=== PATIENT | female | born 1980 | race African-American/Black ===

== ENCOUNTER 2018-05-13 18:57 | Emergency (ER) | payer SELFPAY ==
[2018-05-13 19:17] LABS: Bilirubin Negative (Negative); Blood, Urine Negative (Negative); Clarity CLEAR (Clear); Glucose, Urine (Dipstick) Negative (Negative); Leukocyte Negative (Negative); Nitrite Negative (Negative); Protein, Urine (Dipstick) Negative (Neg-Trace); Specific Gravity, Urine 1.026 (1.002-1.036); pH, Urine 6.5 (5.0-9.0)
[2018-05-13 19:30] LABS: #Lymphocytes 1.1 thou/uL (1.20-3.40); #Monocytes 0.7 thou/uL (0.11-0.59); #Neutrophils 4.7 thou/uL (1.40-6.50); %Basophils 0.1 % (0.0-1.0); %Eosinophils 0.7 % (0.0-10.0); %Lymphocytes 16.7 % (21.0-51.0); %Neutrophils 72.5 % (42.0-75.0); Hemoglobin 10.1 g/dL (12.0-16.0); Mean Corpuscular HGB CONC 32.7 g/dL (32.0-36.0); Mean Corpuscular Hemoglobin 22.8 pg (27.0-31.0); Mean Corpuscular Volume 69.7 fL (78.0-98.0); Mean Platelet Volume 9.5 fL (7.4-10.4); Platelet Count 278 thou/uL (130-400); RBC Distribution Width 17.6 % (11.5-14.5); Red Blood Cell (RBC) Count 4.43 mill/uL (4.20-5.40); White Blood Cell (WBC) Count 6.5 thou/uL (4.8-10.8)
[2018-05-13 19:47] LABS: ALT (SGPT) Less than 7 U/L (8-55); AST (SGOT) 10 U/L (5-34); Albumin 4.2 g/dL (3.5-5.0); Alkaline Phosphatase 75 U/L (40-150); Anion Gap 13 mmol/L (10-20); BUN (Urea Nitrogen) 11 mg/dL (7.0-18.7); Bilirubin, Total 0.3 mg/dL (0.2-1.2); Calc. Creatinine Clearance 0 mL/min (70-130); Calcium 9.7 mg/dL (7.8-10.44); Carbon Dioxide 20 mmol/L (22-29); Chloride 104 mmol/L (98-107); Estimated GFR-MDRD 88; Globulin 3.6 g/dL (2.4-3.5); Glucose 85 mg/dL (70-105); Potassium 3.6 mmol/L (3.5-5.1); Protein, Total 7.8 g/dL (6.0-8.3); Sodium 133 mmol/L (136-145)
[2018-05-13 20:00] LABS: Anisocytosis SLIGHT = 6-15 cells (100X) (0-5/hpf); Hypochromia SLIGHT = 6-15 cells (100X) (0-5/hpf); Large Platelets SLIGHT; MDiff Complete? YES; Microcytosis SLIGHT = 6-15 cells (100X) (0-5/hpf); Ovalocytes SLIGHT = 2-5 cells (100X) (0-1/hpf); PLT Morphology Comment Appears Adequate; Polychromasia SLIGHT = 2-3 cells (100X) (0-2/hpf)
--- NOTE | 2018-05-13 20:41 | ULT ---
OB ULTRASOUND: HISTORY: Pelvic pain. TECHNIQUE: Multiple longitudinal and transverse images of the pelvis are obtained using a Multi-Hertz curvilinea r transabdominal transducer. Real-time, color-flow, and spectral wave-form Doppler analysis is used to evaluate the pelvis. FINDINGS: Images demonstrate the uterus to measure 11.9 x 6.8 x 7.5 cm. There is a 5.7 x 4.2 x 4.4 cm soft tis bautista mass along the anterior aspect of the uterus, compatible with a large uterine fibroid. There is also an area of heterogeneous echogenicity along the more posterior upper aspect of the uter ine canal, measuring 2.7 x 1.5 cm. This may represent a small area of subchorionic hemorrhage. There is a gestational sac and a pole also seen. [place]-rump length measurement is 2 cm, giving a gestational age of 8 weeks 4 days. Cardiac activity is confirmed, measuring 175 beats per minute. Both ovaries are visualized with good blood flow. The right ovary measures 3.1 x 1.8 x 3.6 cm, while the left ovary measures 2.3 x 1.8 x 1.4 cm. IMPRESSION: 1. Viable intrauterine . Estimated gestational age is 8 weeks 3 days with an estimated khanh e of delivery of 12/20/2018. 2. Moderate sized uterine fibroid. 3. Area of heterogeneous density in the uterine cavity, concerning for an area of subchorionic hemor rhage. POS: [facility]
[2018-05-14 22:42] LABS: Chlamydia by PCR Not Detected (NotDetected); GC by PCR Not Detected (NotDetected)
== END 2018-05-13 21:58 | disposition home or self-care (01) ==
LOC: ERS 18:57
DX: O99.89 Other specified diseases and conditions complicating pregnancy, childbirth and the puerperium (principal); R10.30 Lower abdominal pain, unspecified; Z3A.08 8 weeks gestation of pregnancy
CPT/HCPCS: 36415; 76856; 80053; 81003; 84702; 85025; 86900; 86901; 87480; 87491; 87510; 87591; 87660; 93976

== ENCOUNTER 2018-06-10 02:06 | Emergency (ER) | payer MEDICAID ==
--- NOTE | 2018-06-10 15:34 | ULT ---
PRELIMINARY REPORT/[facility]/EMERGENTY AFTER-HOURS PROCEDURE US First Trimester, Transabdominal CLINICAL HISTORY: 37 years old, female; Signs and symptoms; Lmp or gestational age (in weeks): 13wks; Other: Vag spotti ng; TECHNIQUE: Real-time transabdominal obstetrical ultrasound of the maternal pelvis and a first trimester pregnanc y with image documentation. COMPARISON: No relevant prior studies available. FINDINGS: Gestation: Single, living intrauterine gestation. heart rate 155 beats per minute. CRL 6.87 cm, 13w1d. Subchorionic hemorrhage measuring up to 2.4 cm. Placenta/amniotic fluid: Cannot be adequately evaluated due to the early gestational age. Uterus/cervix: See above. No myometrial mass. Ovaries: Unremarkable. No mass. Free fluid: No significant free fluid. IMPRESSION: Single viable intrauterine . Subchorionic hemorrhage. Thank you for allowing us to participate in the care of your patient. Dictated and Authenticated by: Michele Benton MD 06/10/2018 5:11 AM Central Time ([place] & [place]) FINAL REPORT PELVIC ULTRASOUND: Single viable intrauterine . Gestational age by ultrasound is 13 weeks 4 days. heart rate is 155 b.p.m. There are hyperechoic areas seen in the subchorionic region consistent with areas of subchorionic hem orrhage. These findings were described on the preliminary report. I am in agreement with the preliminary report. POS: [facility]
== END 2018-06-10 06:05 | disposition home or self-care (01) ==
LOC: ERS 02:06
DX: O20.8 Other hemorrhage in early pregnancy (principal); Z3A.12 12 weeks gestation of pregnancy
CPT/HCPCS: 76856; 93976

== ENCOUNTER 2023-06-27 01:20 | Inpatient (IN) | payer OTHER ==
[2023-06-27] MEDS ORDERED: Acetaminophen 500 MG TAB ONE (02:02)
[2023-06-27] MEDS ORDERED: diphenhydrAMINE 50 MG/ML VIAL ONE (02:02)
[2023-06-27] MEDS ORDERED: Prochlorperazine 10 MG/2 ML VIAL ONE (02:02)
[2023-06-27] MEDS ORDERED: hydrALAZINE 20 MG/ML VIAL SLOW IVP PRN (03:06)
[2023-06-27] MEDS ORDERED: HYDROcodone/Acetaminophen 5/325 mg Tablet PO PRN (03:06)
[2023-06-27] MEDS ORDERED: Morphine 2 MG/ML VIAL SLOW IVP PRN (03:56)
[2023-06-27] MEDS ORDERED: Aspirin 81 mg Enteric Coated Tablet PO SCH (04:00)
[2023-06-27] MEDS ORDERED: diphenhydrAMINE 50 MG/ML VIAL IVP PRN (04:01)
[2023-06-27] MEDS ORDERED: Metoclopramide HCl 10 MG/2 ML VIAL IVP PRN (04:01)
[2023-06-27 05:46] LABS: #Eosinphils 0.1 thou/uL (0.0-0.7); #Monocytes 0.4 thou/uL (0.11-0.59); #Neutrophils 2.7 thou/uL (1.40-6.50); %Basophils 0.2 % (0.0-1.0); %Eosinophils 1.8 % (0.0-10.0); %Lymphocytes 28.6 % (21.0-51.0); %Monocytes 9.4 % (0.0-10.0); %Neutrophils 59.8 % (42.0-75.0); Hematocrit 28.1 % (36.0-47.0); Hemoglobin 8.2 g/dL (12.0-16.0); Mean Corpuscular HGB CONC 29.2 g/dL (32.0-36.0); Mean Corpuscular Hemoglobin 20.6 pg (27.0-31.0); Mean Corpuscular Volume 70.6 fl (78.0-98.0); Mean Platelet Volume 10.1 fL (7.4-10.4); Platelet Count 252 10x3/uL (130-400); RBC Distribution Width 17.9 % (11.5-14.5); Red Blood Cell (RBC) Count 3.98 mill/uL (4.20-5.40); White Blood Cell (WBC) Count 4.5 10x3/uL (4.8-10.8)
[2023-06-27 05:48] VITALS: BMI 31.6
[2023-06-27 05:52] LABS: Hemoglobin A1c 5.4 % (4.0-6.0)
[2023-06-27 06:12] LABS: Anion Gap 9 mmol/L (10-20); BUN (Urea Nitrogen) 9 mg/dL (7.0-18.7); Calc. Creatinine Clearance 130 mL/min (70-130); Calcium 8.2 mg/dL (7.8-10.44); Carbon Dioxide 23 mmol/L (22-29); Cardiac Risk 2.9 (Less than 4.5); Chloride 108 mmol/L (98-107); Cholesterol 192 mg/dl (< 200 Desired); Estimated GFR 98; Glucose 97 mg/dL (70-105); HDL Cholesterol 66 mg/dL (>60 Neg Risk); Iron 14 ug/dL (50-170); Iron Binding Capacity, Total 498 mcg/dL (265-497); LDL Cholesterol, Calculated 114 mg/dL; Potassium 3.3 mmol/L (3.5-5.1); Sodium 137 mmol/L (136-145); Triglycerides 60 mg/dL (Less than 150)
[2023-06-27 06:33] LABS: Ferritin 6.58 ng/mL (10-291); Thyroid Stimulating Hormone 2.9933 uIU/mL (0.35-4.94)
[2023-06-27] MEDS ORDERED: Aspirin Chewable 81 MG TAB ONE (09:07)
[2023-06-27] MEDS ORDERED: Iopamidol-370 76% 500 ML MDV (1 ML CHARGE) ONE (09:13)
[2023-06-27] MEDS ORDERED: Potassium Chloride 20 MEQ TAB PO SCH (12:15)
[2023-06-27] MEDS: Iron, Sodium Ferric Gluconate 250 MG in Sodium Chloride 0.9% 250 ML 250 ML IVPB SCH (18:14)
[2023-06-27] MEDS: Acetaminophen 325 MG TAB PO PRN (20:40)
[2023-06-27] MEDS ORDERED: Atorvastatin Calcium 40 MG TAB PO SCH (21:00)
[2023-06-28 05:53] LABS: #Eosinphils 0.1 thou/uL (0.0-0.7); #Monocytes 0.5 thou/uL (0.11-0.59); #Neutrophils 3.1 thou/uL (1.40-6.50); %Basophils 0.4 % (0.0-1.0); %Eosinophils 1.4 % (0.0-10.0); %Monocytes 10.8 % (0.0-10.0); Hematocrit 29.4 % (36.0-47.0); Hemoglobin 8.3 g/dL (12.0-16.0); Mean Corpuscular HGB CONC 28.2 g/dL (32.0-36.0); Mean Corpuscular Hemoglobin 20.5 pg (27.0-31.0); Mean Corpuscular Volume 72.6 fl (78.0-98.0); Mean Platelet Volume 10.8 fL (7.4-10.4); Platelet Count 295 10x3/uL (130-400); RBC Distribution Width 17.8 % (11.5-14.5); Red Blood Cell (RBC) Count 4.05 mill/uL (4.20-5.40); White Blood Cell (WBC) Count 4.8 10x3/uL (4.8-10.8)
[2023-06-28 06:19] LABS: Anion Gap 11 mmol/L (10-20); BUN (Urea Nitrogen) 11 mg/dL (7.0-18.7); Calc. Creatinine Clearance 129 mL/min (70-130); Calcium 8.7 mg/dL (7.8-10.44); Carbon Dioxide 22 mmol/L (22-29); Chloride 108 mmol/L (98-107); Estimated GFR 97; Glucose 108 mg/dL (70-105); Potassium 3.9 mmol/L (3.5-5.1); Sodium 137 mmol/L (136-145)
[2023-06-28] MEDS ORDERED: Aspirin 81 mg Enteric Coated Tablet PO SCH ×2 (09:00)
[2023-06-28] MEDS: Acetaminophen 325 MG TAB PO PRN (13:02)
[2023-06-28] MEDS: Iron, Sodium Ferric Gluconate 250 MG in Sodium Chloride 0.9% 250 ML 250 ML IVPB SCH (13:06)
[2023-06-28 16:05] VITALS: BP 128/76; TEMP 97.8
== END 2023-06-28 18:33 | disposition home or self-care (01) | DRG 103 ==
LOC: ERS 01:20 → ERHOLD 03:30 → 2SE 04:35 → ERHOLD 18:30 → 2SE 18:31
PROVIDERS: ADMIT Student in an Organized Health Care Education/Training Program; ATTEND Family Medicine
PROC: 4A00X4Z Measurement of Central Nervous Electrical Activity, External Approach (ICD-10-PCS; principal; 2023-06-27)
DX: G43.909 Migraine, unspecified, not intractable, without status migrainosus (principal); D50.0 Iron deficiency anemia secondary to blood loss (chronic); R55 Syncope and collapse; E87.6 Hypokalemia; Z79.899 Other long term (current) drug therapy; Z87.891 Personal history of nicotine dependence; Z82.49 Family history of ischemic heart disease and other diseases of the circulatory system
CPT/HCPCS: 36415; 70496; 70551; 80048; 80061; 82607; 82728; 83036; 83540; 83550; 84146; 84443; 85025; 93306; 95712; 95819; 95957; J0780; J1200; J2916; J7050; Q9967